=== PATIENT | female | born 1975 | race Caucasian/White ===

== ENCOUNTER → 2016-07-26 | Outpatient (CLI) | payer BC ==
[~2016-07-26] MED LIST: CETI10TA17 PO; DCS100C PO; HYDR-34 PO; IBP600T1 PO; Simethicone PO
--- NOTE | 2016-07-26 21:22 | Diagnostic Imaging Report ---
Digital mammogram bilateral diagnostic This study was compared to the prior exams of 01/09/16, 12/17/15, 10/24/14 and 11/07/13. At this time, there are no current complaints. The current study was also evaluated with a Computer Aided Detection (CAD) system. The fibroglandular tissue in both breasts is heterogeneously dense. This does limit the sensitivity of this exam. The previous studies have shown groups of microcalcifications in both breasts which suggested milk of calcium. Those calcifications are again evident and do not appear to have changed adversely. The stability of these findings does suggest that they are benign. The previous exam also identified several rounded densities in the upper-outer aspect of the right breast. The ultrasound exam performed at the time of previous study did suggest that these were cysts. These do seem somewhat more prominent than on the prior study. Ultrasound would be recommended for further evaluation. The overall appearance of the breast has not changed significantly otherwise. There is no primary or secondary sign of malignancy noted. IMPRESSION: 1. The suspected areas of milk of calcium seen in both breasts on the prior study are again evident and no different. 2. The cysts in the upper-outer aspect of the right breast seen previously do seem slightly larger on this study. Ultrasound would be recommended for further evaluation. ACR BI-RADS Category 0: Incomplete. (Needs additional imaging evaluation). Result letter will be mailed to the patient. Note: At least 10% of breast cancer is not imaged by mammography. Dictated by: Dictated on workstation # [id number]
--- NOTE | 2016-07-26 21:37 | Diagnostic Imaging Report ---
EXAM: Ultrasound of the right breast. INDICATION: Cysts. FINDINGS: The previous right breast ultrasound exam performed on 01/09/16 identified several cysts in the upper-outer quadrant of the right breast. On the diagnostic mammogram performed earlier today, the cyst did seem somewhat larger. On this exam, the largest cyst is in the upper outer quadrant of the right breast located in the 10:30 o'clock position now measures 2.0 x 1.2 x 2.0 cm as opposed to 1.0 x1.1 x 1.8 cm previously. The cyst in the 12:00 o'clock position is also somewhat larger and now measures 1.2 x 1.1 x 0.9 as opposed to 0.8 x 0.6 x 0.9 cm previously. The cyst in the 9:00 o'clock position is estimated be 1.8 x 1.2 x 1.6 cm. On the prior exam, the cyst measured 1.9 x 1.0 x 1.3 cm. The cysts all have a generally benign appearance. It may prove worthwhile however to have a short-term (6 month) followup ultrasound exam for further study. There were no solid lesions identified to suggest malignancy. IMPRESSION: The cysts in the upper-outer quadrant of the right breast do seem slightly larger than noted on the prior study. These cysts still have a generally benign appearance. A six-month followup ultrasound would be recommended for continued evaluation however. ACR category 3. ACR BI-RADS Category 3: Probably benign findings. Result letter will be mailed to the patient. Note: At least 10% of breast cancer is not imaged by mammography. Dictated by: Dictated on workstation # [id number]
== END ==
LOC: RAD 14:14
PROVIDERS: ATTEND Nurse Practitioner
DX: R92.8 Other abnormal and inconclusive findings on diagnostic imaging of breast (principal)

== ENCOUNTER → 2019-05-03 | Outpatient (CLI) | payer BC ==
--- NOTE | 2019-05-03 10:26 | Diagnostic Imaging Report ---
INDICATION: Bilateral breast cysts. Correlation is made with prior mammogram 07/26/2016 and 12/17/2015. 2-D and 3-D bilateral diagnostic mammography was performed with CAD. Both breasts remain heterogeneously dense, limiting the sensitivity of mammography. Calcifications throughout both breasts are again noted. There is some rounded densities in the right breast, similar to prior exam. These were shown to represent cysts on prior ultrasound. No new mass is seen. Axillae are unremarkable. IMPRESSION: BI-RADS 0 Overall stable bilateral mammogram. Followup right breast ultrasound is recommended. Prior ultrasound did recommend a 6 month followup, however patient elected to forego this. Therefore, right breast ultrasound will be performed today to further evaluate previously noted cyst. ACR BI-RADS Category 0: Incomplete. (Needs additional imaging evaluation). Result letter will be mailed to the patient. Note: At least 10% of breast cancer is not imaged by mammography. Dictated by: Dictated on workstation # [id number]
--- NOTE | 2019-05-03 10:36 | Diagnostic Imaging Report ---
INDICATION: Right breast cyst. Studies performed for followup. Correlation is made with prior ultrasound from 07/26/2016. Slightly lobulated cyst 9 o'clock location of the right breast, 8 cm from the nipple, measures 12 mm x 8 mm x 9 mm compared with a 18 mm x 12 mm x 16 mm on prior. This does have some internal debris and complexity, new since prior exam. No internal vascularity is seen. A cyst at the 10:30 location of the right breast 4 cm from the nipple measures 13 mm x 8 mm x 13 mm compared with 20 mm x 12 mm x 20 mm on prior. This is simple. A cyst at the 12:00 location 3 cm from the nipple has increased measuring 17 mm x 18 mm x 11 mm compared with 12 mm x 11 mm x 9 mm on prior. No new mass is seen. IMPRESSION: BI-RADS Category 2 A cyst at the 9 o'clock and 10:30 location of the right breast have decreased in size since examination from July 2016 although the 9 o'clock cyst does show some internal debris. Simple cyst 12 o'clock location has increased in size since prior exam but does remain simple. Patient may return to routine annual screening mammography. ACR BI-RADS Category 2: Benign findings. Result letter will be mailed to the patient. Note: At least 10% of breast cancer is not imaged by mammography. Dictated by: Dictated on workstation # [id number]
== END ==
LOC: RAD 09:31
PROVIDERS: ATTEND Obstetrics & Gynecology
DX: Z12.31 Encounter for screening mammogram for malignant neoplasm of breast (principal); N60.01 Solitary cyst of right breast; N60.02 Solitary cyst of left breast
CPT/HCPCS: 77066

== ENCOUNTER → 2020-11-24 | Outpatient (CLI) | payer BC ==
--- NOTE | 2020-11-24 10:52 | Diagnostic Imaging Report ---
INDICATION: Routine screening. COMPARISON: 05/03/2019 and 07/26/2016. TECHNIQUE: 2D and 3D bilateral screening mammography was performed with CAD. FINDINGS: Both breasts remain heterogeneously dense, limiting the sensitivity of mammography. The overall parenchymal pattern appears to be fairly stable. The rounded mass in the right breast appears stable and has been shown to represent cysts. There are calcifications throughout both breasts. A cluster in the superior left breast at mid depth appears to be fairly stable. No spiculated mass or malignant appearing microcalcifications are seen. The axillae are unremarkable. IMPRESSION: No mammographic features suspicious for malignancy are identified. ACR BI-RADS Category 2: Benign findings. Result letter will be mailed to the patient. Note: At least 10% of breast cancer is not imaged by mammography. Dictated by: Dictated on workstation # [id number]
== END ==
LOC: RAD 10:08
PROVIDERS: ATTEND Obstetrics & Gynecology
DX: Z12.31 Encounter for screening mammogram for malignant neoplasm of breast (principal)
CPT/HCPCS: 77063; 77067